=== PATIENT | male | born 1955 ===

== ENCOUNTER → 2024-08-30 11:19 | Outpatient (REF) | payer OTHER, SELFPAY | LOC: RCS 11:19 | PROVIDERS: ATTENDING PHYSICIAN Internal Medicine Cardiovascular Disease | DX: R01.1 Cardiac murmur, unspecified (principal) | CPT/HCPCS: 93306 ==

== ENCOUNTER 2025-03-25 06:21 | Day surgery (SDC) | payer OTHER, SELFPAY | END 2025-03-25 13:38 | disposition home or self-care (01) | LOC: GI 06:21 | PROVIDERS: ATTENDING PHYSICIAN Surgery | DX: Z12.11 Encounter for screening for malignant neoplasm of colon (principal); K64.9 Unspecified hemorrhoids; K57.30 Diverticulosis of large intestine without perforation or abscess without bleeding | CPT/HCPCS: G0121 ==